=== PATIENT | female | born 1990 | race American Indian/Alaskan Native ===

== ENCOUNTER 2017-10-24 17:10 | Inpatient (IN) | payer MEDICAID ==
[2017-10-24] MEDS ORDERED: ePHEDrine SULFATE IV PRN (18:03)
[2017-10-24] MEDS ORDERED: SUBLIMAZE IV PRN (18:03)
[2017-10-24] MEDS ORDERED: MINERAL OIL PO PRN (18:03)
[2017-10-24] MEDS ORDERED: STADOL IV PRN (18:03)
[2017-10-24] MEDS ORDERED: BRETHINE SUB-Q PRN (18:03)
[2017-10-24] MEDS ORDERED: PITOCin/NS 30 UNIT/500ML 30 UNITS/500 ML BAG IV SCH ×2 (19:00)
[2017-10-24] MEDS ORDERED: LACTATED RINGERS 1,000 ML IV SCH (19:00)
[2017-10-24] MEDS ORDERED: POLYCILLIN/NS 2 GM/100 ML 2 GM/100 ML BAG IV ONE (19:00)
[2017-10-24] MEDS ORDERED: BRETHINE IVP PRN (19:00)
[2017-10-24] MEDS ORDERED: XYLOCAINE 2% INFILTRATI ONE (19:00)
[2017-10-24 19:18] LABS: Hemoglobin 12.4 gm/dl (10.1-14.3); Mean Corpuscular HGB Conc 33 % (30-34); Mean Corpuscular Hemoglobin 27 pg (28-32); Mean Corpuscular Volume 84 fl (79-97); Platelet Count 255 K/mm3 (140-440); Red Blood Count 4.53 M/mm3 (3.65-5.03); Red Cell Distribution Width 15.9 % (13.2-15.2)
--- NOTE | 2017-10-24 19:45 | History and Physical Report ---
History of Present Illness Date of examination: 10/24/17 Date of admission: 10/24/17 18:17 Chief complaint: I'm in labor History of present illness: Patient is a 26 year old who presents at 38.6 weeks in active labor. Patient received care with [facility], however records are not available for review. Per the patient, she has had an uncomplicated course Past History Past Medical History: no pertinent history - Obstetrical History Expected Date of Delivery: 11/01/17 Actual Gestation: 39 Week(s) 0 Day(s) : 5 Medications and Allergies Allergies Allergy/AdvReac Type Severity Reaction Status Date / Time No Known Allergies Allergy Unverified 10/24/17 17:26 Home Medications Medication Instructions Recorded Confirmed Last Taken Type No Known Home Medications [No 10/25/17 10/25/17 Unknown History Reported Home Medications] Active Meds: Active Medications Butorphanol Tartrate (Stadol) 1 mg IV Q2H PRN PRN Reason: Pain, Moderate (4-6) Ephedrine Sulfate (Ephedrine Sulfate) 10 mg IV Q2M PRN PRN Reason: Hypotension Fentanyl (Sublimaze) 100 mcg IV Q2H PRN PRN Reason: Labor Pain Last Admin: 10/24/17 19:32 Dose: 100 mcg Ampicillin Sodium (Polycillin/Ns 2 Gm/100 Ml) 2 gm in 100 mls @ 100 mls/hr IV ONCE ONE; Protocol Stop: 10/24/17 19:59 Last Admin: 10/24/17 19:10 Dose: 100 mls/hr Ampicillin Sodium (Ampicillin/Ns 1 Gm/50 Ml) 1 gm in 50 mls @ 100 mls/hr IV Q4H JAYLIN; Protocol Lactated Ringer's (Lactated Ringers) 1,000 mls @ 125 mls/hr IV DIRECT JAYLIN Oxytocin/Sodium Chloride (Pitocin/Ns 20 Unit/1000ml Drip) 20 units in 1,000 mls @ 125 mls/hr IV DIRECT JAYLIN Oxytocin/Sodium Chloride (Pitocin/Ns 30 Unit/500ml) 30 units in 500 mls @ 1 mls /hr IV TITR JAYLIN; Protocol Oxytocin/Sodium Chloride (Pitocin/Ns 30 Unit/500ml) 30 units in 500 mls @ 4 mls /hr IV TITR JAYLIN; Protocol Mineral Oil (Mineral Oil) 30 ml PO QHS PRN PRN Reason: Constipation Terbutaline Sulfate (Brethine) 0.25 mg SUB-Q ONCE PRN PRN Reason: Hyperstimulation/Hypertonicity Terbutaline Sulfate (Brethine) 0.25 mg IVP ONCE PRN PRN Reason: Hyperstimulation/Hypertonicity Review of Systems All systems: negative Genitourinary: contractions - Vital Signs Vital signs: Vital Signs Pulse BP 95 H 115/78 10/24/17 17:52 10/24/17 17:52 Temp Pulse Resp BP Pulse Ox 98.0 F 89 22 124/82 10/24/17 18:31 10/24/17 18:30 10/24/17 18:31 10/24/17 18:30 - Physical Exam Breasts: Positive: deferred Cardiovascular: Regular rate, Normal S1, Normal S2 Lungs: Positive: Clear to auscultation, Normal air movement Abdomen: Positive: normal appearance, soft, normal bowel sounds Genitourinary (Female): Positive: normal external genitalia, normal perenium Vagina: Positive: normal moisture - Obstetrical FHR: auscultation normal Cervical Dilatation: 5 Cervical Effacement Percentage: 90 station: -2 Results Result Diagrams: 10/25/17 08:55 Abnormal lab results 10/24/17 Range/Units 19:05 WBC 12.5 H (4.5-11.0) K/mm3 MCH 27 L (28-32) pg RDW 15.9 H (13.2-15.2) % All other labs normal. Assessment and Plan IUP at 38.6 in active labor. Admit to L&D. Augment if needed. Treat for unknown GBS. Anticipate .
[2017-10-24] MEDS: PITOCin/NS 20 UNIT/1000ML DRIP 20 UNITS/1,000 ML BAG IV SCH ×2 (21:25→22:15)
--- NOTE | 2017-10-24 21:37 | Procedure Note ---
OB Delivery Note - Delivery Date of Delivery: 10/24/17 Surgeon: SONIA BERKOWITZ Estimated blood loss: 100cc - Vaginal Delivery presentation: vertex Delivery position: OA Intrapartum events: none Delivery induction: none Delivery monitor: external FHT, external uterine Route of delivery: Delivery placenta: spontaneous Delivery cord: nuchal cord, 3 umbilical vessels Episiotomy: none Delivery laceration: none Anesthesia: none Delivery comments: Viable male delivered over intact perineum with loose nuchal easily reduced on perineum. Infant place on maternal abdomen. cord clamped and cut when done pulsating. Placenta delivered spontaneously and intact with 3vc. No lacerations. Patient tolerated procedure well. Excellent hemostasis. - Infant A at 1 minute: 8 at 5 minutes: 9 Infant Gender: Male (6 pound 6 ounces)
[2017-10-24] MEDS ORDERED: AMPICILLIN/NS 1 GM/50 ML 1 GM/50 ML BAG IV SCH (23:00)
[2017-10-24] MEDS ORDERED: ZOFRAN IV PRN (23:41)
[2017-10-24] MEDS ORDERED: BENADRYL PO PRN (23:41)
[2017-10-24] MEDS ORDERED: SODIUM CHLORIDE FLUSH SYRINGE 10 ML IV PRN (23:41)
[2017-10-24] MEDS ORDERED: NORCO 5/325 PO PRN (23:41)
[2017-10-24] MEDS ORDERED: DULCOLAX PR PRN (23:41)
[2017-10-24] MEDS ORDERED: TYLENOL PO PRN (23:41)
[2017-10-24] MEDS ORDERED: TUCKS PAD TP PRN (23:41)
[2017-10-24] MEDS ORDERED: LANSINOH TP PRN (23:41)
[2017-10-24] MEDS ORDERED: PHENERGAN PO PRN (23:41)
[2017-10-24] MEDS ORDERED: PHENERGAN PR PRN (23:41)
[2017-10-24] MEDS ORDERED: MILK OF MAGNESIA PO PRN (23:41)
[2017-10-25] MEDS: COLACE PO SCH ×2 (00:34→15:17)
[2017-10-25] MEDS: MOTRIN PO SCH ×4 (00:34→19:25)
[2017-10-25 09:12] LABS: Hematocrit 31.8 % (30.3-42.9); Hemoglobin 10.6 gm/dl (10.1-14.3)
[2017-10-25] MEDS ORDERED: PRENATAL VITAMIN PO SCH (10:00)
[2017-10-25] MEDS ORDERED: M-M-R II VACCINE SUB-Q ONE (21:38)
[2017-10-26] MEDS ORDERED: BOOSTRIX IM ONE (06:00)
--- NOTE | 2017-10-26 07:26 | Progress Note ---
Assessment and Plan PPD 1 s/p . Doing well. records needed. Plan for discharge on tomorrow Subjective - Subjective Date of service: 10/25/17 Interval history: Patient is a 26 year old who presents at 38.6 weeks in active labor. Patient received care with [facility] [place], however records are not available for review. Per the patient, she has had an uncomplicated course Patient reports: appetite normal, voiding normally, pain well controlled, ambulating normally : doing well Objective - Vital Signs Latest vital signs: Vital Signs Temp Pulse Resp BP Pulse Ox 10/26/17 00:37 98.5 F 84 18 110/79 10/25/17 20:25 18 10/25/17 17:32 98.3 F 104 H 18 124/76 100 10/25/17 08:50 97.4 F L 90 18 126/76 98 Intake and Output 10/25/17 10/26/17 10/26/17 22:59 06:59 14:59 Intake Total 360 360 Balance 360 360 Intake: Intake, Free Water 360 360 Other: # Voids Void 2 - Exam Breasts: Present: deferred Cardiovascular: Present: Regular rate, Normal S1, Normal S2 Lungs: Present: Clear to auscultation, Normal air movement Abdomen: Present: normal appearance, soft, normal bowel sounds Vulva: both: normal Uterus: Present: normal, firm Extremities: Present: normal
--- NOTE | 2017-10-26 08:56 | Progress Note ---
Assessment and Plan - Patient Problems (1) Active labor at term Current Visit: Yes Status: Acute Plan to address problem: patient doing well Subjective - Subjective Date of service: 10/26/17 Interval history: Patient without complaints. Pain well controlled. Tolerating regular diet Patient reports: appetite normal, voiding normally, pain well controlled [place]: doing well Objective - Vital Signs Latest vital signs: Vital Signs Temp Pulse Resp BP Pulse Ox 10/26/17 00:37 98.5 F 84 18 110/79 10/25/17 20:25 18 10/25/17 17:32 98.3 F 104 H 18 124/76 100 Intake and Output 10/25/17 10/26/17 10/26/17 22:59 06:59 14:59 Intake Total 360 360 Balance 360 360 Intake: Intake, Free Water 360 360 Other: # Voids Void 2
--- NOTE | 2017-10-26 08:57 | Discharge Summary ---
Providers - Providers Date of Admission: 10/24/17 18:17 Date of discharge: 10/26/17 Attending physician: JAYNA FREITAS MD Primary care physician: JAYNA FREITAS MD Hospitalization Reason for admission: active labor Delivery: Discharge diagnosis: IUP at term delivered [place] baby: male Hospital course: Patient admitted in active labor. Had a . uncomplicated Condition at discharge: Good Disposition: DC-01 TO HOME OR SELFCARE - Discharge Diagnoses (1) Active labor at term Status: Acute Plan - Discharge Medications Prescriptions: HYDROcodone/APAP 5-325 [[place] 5/325] 1 each PO Q6HR PRN #30 tablet PRN Reason: Pain Ibuprofen [Motrin] 800 mg PO Q8HR PRN #60 tablet PRN Reason: Pain - Provider Discharge Summary Activity: no sex for 6 weeks, no heavy lifting 4 weeks, no strenuous exercise Diet: routine Instructions: routine Additional instructions: [] Smoking cessation referral if applicable(refer to patient education folder for contact #) [] Refer to [facility] Call your doctor immediately for: * Fever > 100.5 * Heavy vaginal bleeding ( >1 pad per hour) * Severe persistent headache * Shortness of breath * Reddened, hot, painful area to leg or breast * schedule visit in 4 weeks - Follow up plan
[2017-10-26 09:06] VITALS: BP 117/79
== END 2017-10-26 14:30 | disposition home or self-care (01) | DRG 775 ==
LOC: TRG 17:10 → LD 18:17 → OB 23:27
PROVIDERS: ADMIT Obstetrics & Gynecology; ATTEND Obstetrics & Gynecology
PROC: 10E0XZZ Delivery of Products of Conception, External Approach (ICD-10-PCS; principal; 2017-10-24)
DX: O69.81X0 Labor and delivery complicated by cord around neck, without compression, not applicable or unspecified (principal); Z3A.38 38 weeks gestation of pregnancy; Z37.0 Single live birth; Z23 Encounter for immunization
CPT/HCPCS: 36415; 85014; 85018; 85027; 86592; 86706; 86762; 86850; 86900; 86901; 87806; 99211; G0463; J0290; J2590; J3010; J7120

== ENCOUNTER 2018-02-23 23:55 | Emergency (ER) | payer MEDICAID ==
[2018-02-24] MEDS ORDERED: ASPIRIN PO ONE (00:30)
[2018-02-24 00:52] LABS: Basophils % (Auto) 0.5 % (0.0-1.8); Eosinophils # (Auto) 0.1 K/mm3 (0.0-0.4); Eosinophils % (Auto) 1.5 % (0.0-4.3); Hematocrit 35.9 % (30.3-42.9); Hemoglobin 12.3 gm/dl (10.1-14.3); Lymphocytes # (Auto) 3.5 K/mm3 (1.2-5.4); Lymphocytes % (Auto) 50.3 % (13.4-35.0); Mean Corpuscular HGB Conc 34 % (30-34); Mean Corpuscular Hemoglobin 29 pg (28-32); Mean Corpuscular Volume 85 fl (79-97); Monocytes # (Auto) 0.3 K/mm3 (0.0-0.8); Monocytes % (Auto) 5.1 % (0.0-7.3); Red Blood Count 4.22 M/mm3 (3.65-5.03); Red Cell Distribution Width 15.1 % (13.2-15.2)
[2018-02-24 01:01] LABS: Platelet Count 238 K/mm3 (140-440)
[2018-02-24 01:10] LABS: BUN/Creatinine Ratio 14; Blood Urea Nitrogen 10 mg/dL (7-17); Calcium 9.4 mg/dL (8.4-10.2); Hemolysis Index 0
--- NOTE | 2018-02-24 07:14 | XRay Report ---
FINAL REPORT EXAM: XR CHEST ROUTINE 2V HISTORY: sob, cp TECHNIQUE: PA and lateral chest radiographs PRIORS: None. FINDINGS: No mediastinal shift. Cardiac silhouette is not enlarged. No pneumothorax, effusion, or focal pulmonary opacity. No acute skeletal finding. IMPRESSION: No focal pulmonary opacity.
[2018-02-24] MEDS ORDERED: K-DUR PO ONE (08:00)
--- NOTE | 2018-02-24 08:00 | Emergency Department Report ---
ED Chest Pain HPI - General Chief Complaint: Chest Pain Stated Complaint: CHEST PAIN Time Seen by Provider: 02/24/18 06:20 Source: patient Mode of arrival: Ambulatory Limitations: No Limitations - History of Present Illness Initial Comments: 27-year-old female with a past medical history of "heart palpitations" presents to Hospital complaints of sudden onset of bilateral chest tightness and shortness of breath at 11 PM last night while breast-feeding. Symptoms lasted for 30 minutes to one hour before improving. Patient took [place] prior to arrival. She presents to the ER asymptomatic and has been asymptomatic since. Patient denies wheezing, cough or cold symptoms, fever, nausea, vomiting, diaphoresis, control pill use, calf tenderness, leg edema, recent travel, or history of PE/DVT. She is status post delivery 10/24 2017. Patient had cardiac workup including Holter monitor testing about 10 years ago for palpitations without any significant diagnosis. - Related Data Previous Rx's Medication Instructions Recorded Last Taken Type HYDROcodone/APAP 5-325 [[place] 1 each PO Q6HR PRN #30 tablet 10/26/17 Unknown Rx 5/325] Ibuprofen [Motrin] 800 mg PO Q8HR PRN #60 tablet 10/26/17 Unknown Rx Allergies Allergy/AdvReac Type Severity Reaction Status Date / Time No Known Allergies Allergy Unverified 10/24/17 17:26 Heart Score - HEART Score History: Slightly suspicious EKG: Normal Age: < 45 Risk factors: No known risk factors Troponin: < normal limit HEART Score: 0 ED Review of Systems ROS: Stated complaint: CHEST PAIN Other details as noted in HPI Comment: All other systems reviewed and negative ED Past Medical Hx - Past Medical History Hx Hypertension: No Hx Heart Attack/AMI: Yes (HEART PALPITATIONS) Hx Congestive Heart Failure: No Hx Diabetes: No Hx Deep Vein Thrombosis: No Hx Renal Disease: No Hx Sickle Cell Disease: No Hx Seizures: No Hx Asthma: No Hx COPD: No Hx HIV: No - Surgical History Past Surgical History?: No - Social History Smoking Status: Never Smoker Substance Use Type: None - Medications Home Medications: Home Medications Medication Instructions Recorded Confirmed Last Taken Type HYDROcodone/APAP 5-325 [[place] 1 each PO Q6HR PRN #30 tablet 10/26/17 Unknown Rx 5/325] Ibuprofen [Motrin] 800 mg PO Q8HR PRN #60 tablet 10/26/17 Unknown Rx ED Physical Exam - General Limitations: No Limitations - Other Other exam information: General: No limitations, patient is alert in no acute distress Head exam: Atraumatic, normocephalic Eyes exam: Normal appearance ENT: Moist mucous membrane, normal oropharynx Neck exam: Normal inspection, full range of motion, no meningismus nontender Respiratory exam: Clear to auscultation bilateral, no wheezes, rales, crackles Cardiovascular: Normal rate and rhythm, normal heart sounds, chest wall nontender Abdomen: Soft, nondistended, and nontender, with normal bowel sounds, no rebound, or guarding Extremity: Full range of motion normal inspection no deformity, no calf tenderness or edema Back: Normal Inspection, full range of motion, no tenderness Neurologic: Alert, oriented x3, cranial nerves intact, no motor or sensory deficit Psychiatric: normal affect, normal mood Skin: Warm, dry, intact ED Course Vital Signs 02/23/18 02/24/18 02/24/18 23:55 02:01 02:08 Temperature 98.2 F 98.2 F Pulse Rate 66 60 60 Respiratory 18 9 L 14 Rate Blood Pressure 109/76 109/75 Blood Pressure 109/75 [Left] O2 Sat by Pulse 96 100 99 Oximetry 02/24/18 02/24/18 02/24/18 03:01 04:00 05:00 Temperature Pulse Rate Respiratory 19 18 16 Rate Blood Pressure 104/68 101/63 102/66 Blood Pressure [Left] O2 Sat by Pulse 99 100 100 Oximetry - Reevaluation(s) Reevaluation #1: 02/24/18 07:58 patient remained asymptomatic during ED stay SARI score - Sari Score Age > 65: (0) No Aspirin use within the Past 7 Days: (0) No 3 or more CAD Risk Factors: (0) No 2 or more Angina events in past 24 hrs: (0) No Known CAD with more than 50% Stenosis: (0) No Elevated Cardiac Markers: (0) No ST Deviation Greater than 0.5mm: (0) No SARI Score: 0 ED Medical Decision Making - Lab Data Result diagrams: 02/24/18 00:35 02/24/18 00:35 Lab Results 02/24/18 02/24/18 02/24/18 Range/Units 00:35 00:35 00:35 WBC 6.9 (4.5-11.0) K/mm3 RBC 4.22 (3.65-5.03) M/mm3 Hgb 12.3 (10.1-14.3) gm/dl Hct 35.9 (30.3-42.9) % MCV 85 (79-97) fl MCH 29 (28-32) pg MCHC 34 (30-34) % RDW 15.1 (13.2-15.2) % Plt Count 238 (140-440) K/mm3 Lymph % (Auto) 50.3 H (13.4-35.0) % [place] % (Auto) 5.1 (0.0-7.3) % Eos % (Auto) 1.5 (0.0-4.3) % Baso % (Auto) 0.5 (0.0-1.8) % Lymph # 3.5 (1.2-5.4) K/mm3 [place] # 0.3 (0.0-0.8) K/mm3 Eos # 0.1 (0.0-0.4) K/mm3 Baso # 0.0 (0.0-0.1) K/mm3 Seg Neutrophils % 42.6 (40.0-70.0) % Seg Neutrophils # 2.9 (1.8-7.7) K/mm3 D-Dimer (0-234) ng/mlDDU Sodium 141 (137-145) mmol/L Potassium 3.4 L (3.6-5.0) mmol/L Chloride 103.4 (98-107) mmol/L Carbon Dioxide 22 (22-30) mmol/L Anion Gap 19 mmol/L BUN 10 (7-17) mg/dL Creatinine 0.7 (0.7-1.2) mg/dL Estimated GFR > 60 ml/min BUN/Creatinine Ratio 14 % Glucose 81 (65-100) mg/dL Calcium 9.4 (8.4-10.2) mg/dL Troponin T < 0.010 (0.00-0.029) ng/mL HCG, Qual Negative (Negative) 02/24/18 02/24/18 02/24/18 Range/Units 03:17 06:15 06:15 WBC (4.5-11.0) K/mm3 RBC (3.65-5.03) M/mm3 Hgb (10.1-14.3) gm/dl Hct (30.3-42.9) % MCV (79-97) fl MCH (28-32) pg MCHC (30-34) % RDW (13.2-15.2) % Plt Count (140-440) K/mm3 Lymph % (Auto) (13.4-35.0) % [place] % (Auto) (0.0-7.3) % Eos % (Auto) (0.0-4.3) % Baso % (Auto) (0.0-1.8) % Lymph # (1.2-5.4) K/mm3 [place] # (0.0-0.8) K/mm3 Eos # (0.0-0.4) K/mm3 Baso # (0.0-0.1) K/mm3 Seg Neutrophils % (40.0-70.0) % Seg Neutrophils # (1.8-7.7) K/mm3 D-Dimer 152.58 (0-234) ng/mlDDU Sodium (137-145) mmol/L Potassium (3.6-5.0) mmol/L Chloride (98-107) mmol/L Carbon Dioxide (22-30) mmol/L Anion Gap mmol/L BUN (7-17) mg/dL Creatinine (0.7-1.2) mg/dL Estimated GFR ml/min BUN/Creatinine Ratio % Glucose (65-100) mg/dL Calcium (8.4-10.2) mg/dL Troponin T < 0.010 < 0.010 (0.00-0.029) ng/mL HCG, Qual (Negative) - EKG Data -: EKG Interpreted by Ne EKG shows normal: sinus rhythm, axis (qrs 64), QRS complexes (qrsd 101), ST-T waves (no stemi) Rate: bradycardia (53) - EKG Data When compared to previous EKG there are: previous EKG unavailable 02/24/18 07:59 Repeat EKG performed at 5:50 AM shows improved QTC (now 407 down from 534 with orginal ekg) Sinus rate 61, QRS axis 66 QRS duration 94, and no signs of ST elevation and T- wave - Medical Decision Making Patient has a habit cardiac or PE risk factors were unremarkable ED workup including negative d-dimer. Chest x-ray also unremarkable. Symptoms resolved prior to ED arrival and patient has remained asymptomatic. She is discharged home with PMD follow-up. By mouth potassium given for mild hypokalemia. - Differential Diagnosis PE, atypical chest pain, pneumothorax, pneumonia, RAD, [place] Critical Care Time: No Critical care attestation.: If time is entered above; I have spent that time in minutes in the direct care of this critically ill patient, excluding procedure time. ED Disposition Clinical Impression: Atypical chest pain, Hypokalemia Disposition: TO HOME OR SELFCARE Is pt being admited?: No Does the pt Need Aspirin: No Condition: Stable Instructions: Chest Pain (ED), Hypokalemia (ED) Additional Instructions: Follow-up with your doctor for further management. Return if symptoms worsen as indicated by your discharge instructions. Referrals: DIANE FREITAS MD [Primary Care Provider] - 3-5 Days Time of Disposition: 08:03
[2018-02-24 08:26] VITALS: BP 98/67
== END 2018-02-24 08:17 | disposition home or self-care (01) ==
LOC: ED 23:55
DX: R07.89 Other chest pain (principal); E87.6 Hypokalemia
CPT/HCPCS: 36415; 71046; 80048; 84484; 84703; 85025; 85379; 93005; 93010; 99284

== ENCOUNTER 2018-10-02 06:20 | Emergency (ER) | payer MEDICAID, OTHER ==
[2018-10-02 06:27] VITALS: BP 118/74
[2018-10-02] MEDS ORDERED: BICILLIN L-A IM ONE (08:40)
[2018-10-02] MEDS ORDERED: IBUPROFEN PO ONE (08:40)
--- NOTE | 2018-10-02 08:41 | Emergency Department Report ---
ED ENT HPI - General Chief complaint: Dental/Oral Stated complaint: TOOTH ABSCESS/INFECTION/MAJOR PAIN Time Seen by Provider: 10/02/18 08:40 Source: patient Mode of arrival: Ambulatory Limitations: No Limitations - History of Present Illness Initial comments: Patient is a 27-year-old female who comes to the ER today complaining of left lower molar dental pain and swelling. She has a dmd appointment on Thursday at noon. she drove to ER today MD complaint: tooth pain -: Gradual Severity: moderate Worsens with: eating Context- Dental: history of dental caries Associated Symptoms: gum swelling, toothache - Related Data Previous Rx's Medication Instructions Recorded Last Taken Type Amoxicillin [Trimox CAP] 500 mg PO BID #20 capsule 10/02/18 Unknown Rx traMADol [Ultram] 50 mg PO Q6HR PRN #10 tablet 10/02/18 Unknown Rx Allergies Allergy/AdvReac Type Severity Reaction Status Date / Time No Known Allergies Allergy Unverified 10/24/17 17:26 ED Dental HPI - General Chief complaint: Dental/Oral Stated complaint: TOOTH ABSCESS/INFECTION/MAJOR PAIN Time Seen by Provider: 10/02/18 08:40 Source: patient Mode of arrival: Ambulatory Limitations: No Limitations - Related Data Previous Rx's Medication Instructions Recorded Last Taken Type Amoxicillin [Trimox CAP] 500 mg PO BID #20 capsule 10/02/18 Unknown Rx traMADol [Ultram] 50 mg PO Q6HR PRN #10 tablet 10/02/18 Unknown Rx Allergies Allergy/AdvReac Type Severity Reaction Status Date / Time No Known Allergies Allergy Unverified 10/24/17 17:26 ED Review of Systems ROS: Stated complaint: TOOTH ABSCESS/INFECTION/MAJOR PAIN Other details as noted in HPI Comment: All other systems reviewed and negative Constitutional: denies: chills Eyes: denies: eye pain ENT: as per HPI, dental pain. denies: ear pain, throat pain, hearing loss, epistaxis, congestion Respiratory: denies: cough Cardiovascular: denies: palpitations Endocrine: denies: flushing Gastrointestinal: denies: nausea Genitourinary: denies: urgency Musculoskeletal: denies: back pain Skin: denies: rash Neurological: denies: headache Psychiatric: denies: anxiety Hematological/Lymphatic: denies: easy bleeding ED Past Medical Hx - Past Medical History Previous Medical History?: Yes Hx Hypertension: No Hx Heart Attack/AMI: Yes (HEART PALPITATIONS) Hx Congestive Heart Failure: No Hx Diabetes: No Hx Deep Vein Thrombosis: No Hx Renal Disease: No Hx Sickle Cell Disease: No Hx Seizures: No Hx Asthma: No Hx COPD: No Hx HIV: No - Surgical History Past Surgical History?: No - Family History Family history: no significant - Social History Smoking Status: Never Smoker Substance Use Type: Alcohol - Medications Home Medications: Home Medications Medication Instructions Recorded Confirmed Last Taken Type Amoxicillin [Trimox CAP] 500 mg PO BID #20 capsule 10/02/18 Unknown Rx traMADol [Ultram] 50 mg PO Q6HR PRN #10 tablet 10/02/18 Unknown Rx ED Physical Exam - General Limitations: No Limitations General appearance: alert, in no apparent distress - Head Head exam: Present: atraumatic, normocephalic - Eye Eye exam: Present: normal appearance, PERRL - ENT ENT exam: Present: mucous membranes moist - Expanded ENT Exam Expanded Mouth exam: Present: tongue normal. Absent: drooling, trismus, muffled voice Teeth exam: Present: dental caries, gingival enlargement Throat exam: Positive: normal inspection. Negative: tonsillar erythema, tonsillomegaly, tonsillar exudate, R peritonsillar mass, L peritonsillar mass ED Course Vital Signs 10/02/18 06:24 Temperature 98.3 F Pulse Rate 93 H Respiratory 18 Rate Blood Pressure 118/74 O2 Sat by Pulse 99 Oximetry ED Medical Decision Making - Medical Decision Making simple dental Vital Signs 10/02/18 06:24 Temperature 98.3 F Pulse Rate 93 H Respiratory 18 Rate Blood Pressure 118/74 O2 Sat by Pulse 99 Oximetry medicated and dc home with dc poc Critical care attestation.: If time is entered above; I have spent that time in minutes in the direct care of this critically ill patient, excluding procedure time. ED Disposition Clinical Impression: Dental caries, Gingival disease Disposition: DC-01 TO HOME OR SELFCARE Is pt being admited?: No Does the pt Need Aspirin: No Condition: Stable Additional Instructions: follow up with dmd lizzie on Thursday as scheduled diet as tolerated motrin or tylenol for mild pain ultram for severe pain good oral care rinse mouth several times a day with listerine hydrate well with water Prescriptions: Amoxicillin [Trimox CAP] 500 mg PO BID #20 capsule traMADol [Ultram] 50 mg PO Q6HR PRN #10 tablet PRN Reason: Pain Referrals: LESLIE BILLS MD [Primary Care Provider] - 3-5 Days [facility] [Outside] - 3-5 Days [facility] [Outside] - 3-5 Days Time of Disposition: 09:19
== END 2018-10-02 09:30 | disposition home or self-care (01) ==
LOC: ED 06:20
DX: K02.9 Dental caries, unspecified (principal); K06.8 Other specified disorders of gingiva and edentulous alveolar ridge
CPT/HCPCS: 96372; 99282; J0561